=== PATIENT | female | born 1985 | race Two or more races ===

== ENCOUNTER 2023-06-22 10:34 | Outpatient (CLI) | payer OTHER ==
[2023-06-22 11:26] LABS: THYROID STIMULATING HORMONE 2.07 uIU/mL (0.34-5.60)
[2023-06-22 11:31] LABS: PROLACTIN 25.75 ng/mL
[2023-06-23 06:09] LABS: ESTRADIOL 34.2 pg/mL (.)
[2023-06-23 18:08] LABS: PROGESTERONE 0.3 ng/mL (.)
[2023-06-24 17:09] LABS: FREE TESTOSTERONE(DIRECT) 5.8 pg/mL (0.0-4.2); SEX HORM BINDING GLOB SERUM 51.5 nmol/L (24.6-122.0)
== END 2023-06-22 10:35 | disposition home or self-care (01) ==
LOC: LAB 10:34
PROVIDERS: ATTEND Nurse Practitioner
DX: N92.0 Excessive and frequent menstruation with regular cycle (principal)
CPT/HCPCS: 36415; 82397; 82627; 82670; 83001; 83002; 83498; 84144; 84146; 84270; 84402; 84403; 84443